=== PATIENT | female | born 1975 | race Asian ===

== ENCOUNTER 2023-01-06 09:23 | Outpatient (CLI) | payer OTHER | END 2023-01-06 18:59 | disposition home or self-care (01) | LOC: CT 09:23 | PROVIDERS: ATTEND Orthopaedic Surgery Adult Reconstructive Orthopaedic Surgery | DX: M25.562 Pain in left knee (principal); M17.12 Unilateral primary osteoarthritis, left knee; Z68.41 Body mass index [BMI] 40.0-44.9, adult; I10 Essential (primary) hypertension; E11.9 Type 2 diabetes mellitus without complications; F17.201 Nicotine dependence, unspecified, in remission; M54.16 Radiculopathy, lumbar region ==